=== PATIENT | female | born 1970 | race Caucasian/White ===

== ENCOUNTER 2018-09-28 07:20 | Day surgery (SDC) | payer OTHER ==
[2018-09-28] MEDS ORDERED: SOD CHLORIDE 0.9% 1,000 ML IV (08:00)
[2018-09-28] MEDS ORDERED: CEFAZOLIN 1 GM INJ (09:28)
[2018-09-28] MEDS ORDERED: LIDOCAINE 2% (SDV) 5 ML INJ (09:28)
[2018-09-28] MEDS ORDERED: PROPOFOL 20 ML (09:28)
[2018-09-28] MEDS ORDERED: MIDAZOLAM 1 MG/ML 2 ML INJ (09:32)
[2018-09-28] MEDS: ISOSULFAN BLUE 1% 5 ML INJ SC (10:05)
[2018-09-28] MEDS ORDERED: ONDANSETRON 4 MG INJ (10:10)
[2018-09-28] MEDS ORDERED: METOCLOPRAMIDE 10 MG INJ (10:10)
[2018-09-28] MEDS ORDERED: DEXAMETHASONE 4 MG/ML 5 ML INJ (10:28)
[2018-09-28] MEDS ORDERED: ONDANSETRON 4 MG INJ IV (11:30)
[2018-09-28] MEDS ORDERED: DIPHENHYDRAMINE 25 MG CAP PO (11:30)
[2018-09-28] MEDS ORDERED: MEPERIDINE 25 MG INJ (11:37)
[2018-09-28] MEDS ORDERED: FENTAnyl 50 MCG/ML VIAL IV (12:00)
[2018-09-28] MEDS ORDERED: LABETALOL HCL 20MG INJ IV (12:00)
[2018-09-28] MEDS ORDERED: OXYCODONE/ACETAMINOPHEN (5/325) TAB PO (12:00)
[2018-09-28] MEDS: MEPERIDINE 25 MG INJ IV (12:06)
[2018-09-28] MEDS: ONDANSETRON 4 MG INJ IV (12:08)
[2018-09-28] MEDS: MIDAZOLAM 1 MG/ML 2 ML INJ IV (12:09)
[2018-09-28] MEDS: OXYCODONE/ACETAMINOPHEN (5/325) TAB PO (12:09)
[2018-09-28] MEDS: FENTAnyl 50 MCG/ML VIAL IV (12:09)
[2018-09-28] MEDS ORDERED: HYDROmorphONE 1 MG/ML SYG SC (12:30)
[2018-09-28] MEDS: D5W-0.45 NACL + KCL 20 MEQ 1,000 ML IV ×2 (13:21→22:00)
[2018-09-28] MEDS: HYDROCODONE/APAP (5/325) TAB PO (18:38)
[2018-09-28] MEDS: CEFAZOLIN 2 GM/50 ML (PMX) 50 ML IVPB (19:55)
[2018-09-28] MEDS: ACETAMINOPHEN 325 MG TAB PO (21:15)
[2018-09-28] MEDS: ZOLPIDEM 5 MG TAB PO (21:15)
[2018-09-28] MEDS: clonAZEPAM 0.5 MG TAB PO (21:15)
[2018-09-29] MEDS: CEFAZOLIN 2 GM/50 ML (PMX) 50 ML IVPB (03:06)
[2018-09-29] MEDS: D5W-0.45 NACL + KCL 20 MEQ 1,000 ML IV (07:38)
[2018-09-29] MEDS: HYDROCODONE/APAP (5/325) TAB PO (08:19)
== END 2018-09-29 10:15 | disposition home or self-care (01) ==
LOC: SDS 07:20 → PP2 12:51
DX: D05.12 Intraductal carcinoma in situ of left breast (principal); E78.5 Hyperlipidemia, unspecified; E66.01 Morbid (severe) obesity due to excess calories; Z68.32 Body mass index [BMI] 32.0-32.9, adult
CPT/HCPCS: 19301; 84703; 88307; 88331